=== PATIENT | female | born 1960 | race Caucasian/White ===

== ENCOUNTER 2019-07-06 15:46 | Emergency (ER) | payer MEDICARE, BC ==
[2019-07-06 15:56] LABS: Glucose,Whole Blood 135 mg/dL (75-99)
[2019-07-06] MEDS ORDERED: SODIUM CHLORIDE 0.9% 1,000 ML IV STA (16:00)
[2019-07-06] MEDS ORDERED: TRANEXAMIC ACID 1,000 MG in SODIUM CHLORIDE 0.9% 100 ML IV STA (16:00)
[2019-07-06] MEDS ORDERED: RX INFO: IV CONTRAST WAS GIVEN 1 EACH MISC MISCELLANE PRN (16:00)
[2019-07-06] MEDS ORDERED: DIPH,PERTUS(ACELL)TETVAC-LF 0.5 ML VIAL IM ONE (16:00)
[2019-07-06] MEDS ORDERED: MORPHINE SULFATE 4 MG/ML SYRINGE IVP STA (16:01)
[2019-07-06 16:17] LABS: Basophils # (A) 0.1 k/uL (0-0.2); Basophils % (A) 1 %; Eosinophils # (A) 0.4 k/uL (0-0.7); Eosinophils % (A) 3 %; HCT 45.8 % (34.0-46.0); HGB 14.7 gm/dL (11.4-16.0); Lymphocytes # (A) 3.1 k/uL (1.0-4.8); Lymphocytes % (A) 25 %; MCH 27.7 pg (25.0-35.0); MCV 86.7 fL (80.0-100.0); Mean Platelet Volume 9.9; Monocytes # (A) 0.7 k/uL (0-1.0); Monocytes % (A) 5 %; Neutrophils # (A) 7.9 k/uL (1.3-7.7); Neutrophils % (A) 63 %; Platelet Count 209 k/uL (150-450); RBC 5.29 m/uL (3.80-5.40); RDW 12.8 % (11.5-15.5); WBC 12.5 k/uL (3.8-10.6)
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
--- NOTE | 2019-07-06 16:23 | XR ---
EXAMINATION TYPE: XR pelvis AP view DATE OF EXAM: 07/06/2019 CLINICAL HISTORY: Fall and pelvic pain TECHNIQUE: A single AP view of the pelvis is obtained. COMPARISON: None. FINDINGS: There is no acute fracture/dislocation evident in the pelvis. The hip and sacroiliac join ts appear symmetric with mild to moderate arthropathy. The overlying soft tissue appears unremarkabl e. IMPRESSION: There is no acute fracture or dislocation in the pelvis.
[2019-07-06 16:32] LABS: ALT 59 U/L (4-34); AST 67 U/L (14-36); African American GFR (CKD) >90 (>60 ml/min/1.73 sqM); Alcohol <10 mg/dL; Alkaline Phosphatase 95 U/L (38-126); Anion Gap 9 mmol/L; Blood Urea Nitrogen 19 mg/dL (7-17); Calcium 9.9 mg/dL (8.4-10.2); Carbon Dioxide 29 mmol/L (22-30); Chloride 100 mmol/L (98-107); Glucose 129 mg/dL (74-99); Non-African American GFR(CKD) 86 (>60 ml/min/1.73 sqM); Potassium 4.8 mmol/L (3.5-5.1); Sodium 138 mmol/L (137-145); Total Bilirubin 0.3 mg/dL (0.2-1.3); Total Protein 7.9 g/dL (6.3-8.2)
--- NOTE | 2019-07-06 16:38 | XR ---
EXAMINATION TYPE: XR chest 1V DATE OF EXAM: 07/06/2019 COMPARISON: NONE HISTORY: Chest pain after two-story fall TECHNIQUE: Single frontal view of the chest is obtained. FINDINGS: There is no focal air space opacity, pleural effusion, or pneumothorax seen. Enlarged card iac mediastinal borders, particularly of the superior mediastinum. The osseous structures are intact. IMPRESSION: 1. Widened superior mediastinum. This will be further evaluated on the CT thorax that has already bee n ordered. 2. No focal consolidation the lungs.
[2019-07-06 16:40] LABS: Partial Thromboplastin Time 22.2 sec (22.0-30.0)
--- NOTE | 2019-07-06 16:46 | CT ---
EXAMINATION TYPE: CT chest w con DATE OF EXAM: 07/06/2019 COMPARISON: NONE HISTORY: from fall 10ft, chest pain CT DLP: 2562.4 mGycm. Automated Exposure Control for Dose Reduction was Utilized. TECHNIQUE: CT scan of the thorax is performed following with IV Contrast, patient injected with 100 mL of Isovue 300. FINDINGS: LUNGS: Scattered groundglass opacities likely on the basis of atelectasis. There is no pleural effusi on or pneumothorax seen. The tracheobronchial tree is patent. MEDIASTINUM: There are no greater than 1 cm hilar or mediastinal lymph nodes. No pericardial effusi on is seen. OTHER: Prior Bernard fundoplication with debris in the distal esophagus and possible recurrent hiatal hernia. Mild degree hepatic steatosis. Gallbladder surgically absent. There is an obliquely oriented sternal manubrial fracture that appears impacted of the anterior cortex without overall displacement. No retrosternal hematoma. Minimal multilevel degenerative disc disease of the spine. IMPRESSION: 1. Acute noncomminuted sternomanubrial fracture. Fracture is impacted without displacement. No retros ternal hematoma. 2. Scattered areas of groundglass opacity, likely atelectasis. No pneumothorax or pulmonary hematoma.
--- NOTE | 2019-07-06 17:06 | CT ---
EXAMINATION TYPE: CT brain cspine wo con DATE OF EXAM: 07/06/2019 COMPARISON: NONE HISTORY: Fall from 10ft CT DLP: 1690.4 mGycm. Automated Exposure Control for Dose Reduction was Utilized. TECHNIQUE: CT scan of the head and cervical spine are performed without contrast. FINDINGS: There is a linear area of hyperattenuation on image 21 just posterior to the insular ruth ex that appears within a sulcus of the right parietal lobe. The ventricles and sulci are within norm al limits in size. The globes are intact and the visualized sinuses are clear. There is a large speedy eto-occipital left scalp hematoma with lacerations in numerous foci of air. Cervical spine is visualized in its entirety from C1 through upper thoracic levels and demonstrates s atisfactory alignment without evidence of acute fracture or dislocation. Prevertebral soft tissue ap pears within normal limits. There is grade 1 anterolisthesis of C5 on C6, likely on a degenerative ba sis as the facets are aligned and no prevertebral soft tissue swelling is seen. Overall mild multilev el degenerative changes of the spine. The C1-C2 articulation is unremarkable. IMPRESSION: 1. Small focus of subarachnoid hemorrhage in the right parietal lobe along the posterior aspect of th e insular cortex. Finding communicated with the ordering ER physician Dr. Smalls at 1703 on 07/06/[address] Holbrook. 2. Large left parieto-occipital scalp hematoma measuring 2.1 cm in greatest thickness with overlying lacerations. 3. No acute displaced cervical spine fracture seen.
[2019-07-06] MEDS ORDERED: HYDROmorphone 1 MG/ML 1 ML SYRINGE IVP STA (17:09)
[2019-07-06 17:24] VITALS: RESP 18; TEMP 97.7
[2019-07-06 18:53] VITALS: BP 100/69; PULSE 97
== END 2019-07-06 18:45 | disposition other institution (70) ==
LOC: EC 15:46
DX: S22.21XA Fracture of manubrium, initial encounter for closed fracture (principal); S01.01XA Laceration without foreign body of scalp, initial encounter; S06.6X0A Traumatic subarachnoid hemorrhage without loss of consciousness, initial encounter; S80.11XA Contusion of right lower leg, initial encounter; R74.8 Abnormal levels of other serum enzymes; E78.5 Hyperlipidemia, unspecified; I10 Essential (primary) hypertension; Z79.82 Long term (current) use of aspirin; Z79.899 Other long term (current) drug therapy; Z85.3 Personal history of malignant neoplasm of breast; Z23 Encounter for immunization; W13.2XXA Fall from, out of or through roof, initial encounter; Y92.71 Barn as the place of occurrence of the external cause
CPT/HCPCS: 99291; 90471; 96365; 96375 ×3; 36415; 93005; 86900; 86901; 80053; 83605; 84484; 85025; 85610; 85730; 86850; 72170; 71045; 72125; 70450; 71260; 90715; G0480; J2270; J0690; J1170; Q9967; 80320

== ENCOUNTER → 2023-04-28 | Outpatient (CLI) | payer MEDICARE, BC ==
--- NOTE | 2023-04-30 12:07 | BD ---
EXAMINATION TYPE: Axial Bone Density DATE OF EXAM: 04/28/2023 CLINICAL HISTORY: 62 years old Female. ICD-10 CODE: R29.890 LOSS OF HEIGHT Height: 65 Weight: 230.6 FRAX RISK QUESTIONS: Alcohol (3 or more units per day): no Family History (Parent hip fracture): no Glucocorticoids (More than 3mos): no (Ex: prednisone, prednisolone, methylprednisolone, dexamethasone, and hydrocortisone). History of Fracture in Adulthood: yes Secondary Osteoporosis: 1. Type 1 Diabetes: no 2. Hyperthyroidism: no 3. Menopause before 45: yes 4. Malnutrition: no 5. Chronic liver disease: no Rheumatoid Arthritis: no Current Tobacco Use: no RISK FACTORS HISTORY OF: Surgery to Spine/Hip(right/left)/Wrist (right/left): no Additional History: EXAM MEASUREMENTS: Bone mineral densitometry was performed using the Right Rele[employer] System. Bone mineral density as measured about the Lumbar spine is: ----- L1-L4(G/cm2): 1.202 T Score Values are as follows: ----- L1: -0.4 ----- L2: 0.5 ----- L3: 0.1 ----- L4: 0.4 ----- L1-L4: 0.2 Z Score Values are as follows: ----- L1: 0.0 ----- L2: 0.9 ----- L3: 0.5 ----- L4: 0.8 ----- L1-L4: 0.6 Bone mineral density baseline: Bone mineral density about the R hip (g/cm2): 0.858 Bone mineral density about the L hip (g/cm2): 0.876 T Score values are as follows: -----R Neck: -1.6 -----L Neck: -1.9 -----R Total: -1.2 -----L Total: -1.0 Z Score values are as follows: -----R Neck: -1.0 -----L Neck: -1.2 -----R Total: -0.9 -----L Total: -0.7 Bone mineral density baseline: FRAX%s: The graph provided illustrates a 15.1% chance for a major osteoporotic fx and a 1.9% chance f or the hips probability for fx in 10 years time. IMPRESSION: Osteopenia (T Score between -2.5 and -1). There is slightly increased risk of fracture and the patient may be considered for treatment. Re-Screen 2-5 years. NOTE: T-SCORE=SD OF THE YOUNG ADULT MEAN.
== END | disposition home or self-care (01) ==
LOC: RADBDWWP 11:22
PROVIDERS: ATTEND Family Medicine
DX: Z13.820 Encounter for screening for osteoporosis (principal); M85.89 Other specified disorders of bone density and structure, multiple sites; M81.0 Age-related osteoporosis without current pathological fracture
CPT/HCPCS: 77080